=== PATIENT | male | born 1930 | race Caucasian/White ===

== ENCOUNTER 2017-12-23 12:17 | Inpatient (IN) | payer OTHER, BC ==
[~2017-12-23] VITALS: Ht 175.3 cm; Wt 95.4 kg
[2017-12-23] MEDS ORDERED: SODIUM CHLORIDE 0.9% 250ML 250 ML IV STA (12:51)
[2017-12-23] MEDS ORDERED: MECLIZINE HCL 25 MG TAB PO STA (12:51)
--- NOTE | 2017-12-23 13:15 | EMERGENCY ROOM VISIT NOTE ---
History Report prepared by Jacklyn: Jah Ahumada Under the Supervision of: Dr. Bryan Sosa M.D. First contact with patient: 12:32 Chief Complaint: FALL Stated Complaint: DIZZINESS AND FALL History of Present Illness The patient is a 87 year old male who presents to the Emergency Room with complaints of intermittent dizziness that occurred 2 days ago causing him to fall to the ground. Patient states he was lying in his recliner watching TV when he then stood up to go to the kitchen. He states as he was walking over he "lost control of anything". Patient describes the dizziness as "feeling like he is drunk". Patient adds he lacerated his right forearm trying to break the fall but denies hitting his head. Patient adds he has been having episodes at night recently where he wakes up feeling like he is "going to ". He states during these episodes he sits at the end of the bed for "10 minutes" with the inability to move anything. He states he is wide awake at this time. Patient states after the feeling resides he wobbles to the bathroom "like he is drunk". Patient states these episodes have happened "more than twice" but they do not happen every night. Patient states he feels like he is going to because he is "87 years old". Patient denies having nightmares. He states he drove to [place] this morning but wasn't feeling well because he was worried the "dizzy" feeling would hit him again while he was driving. Patient lives by himself. Patient takes a blood thinner and Aspirin. Past medical history includes Stage 4 kidney failure. Patient's last doctor visit was in May. Patient is present with his [id number] who is the patient's POA. Source of History: patient, family ([id number]) Onset: 2 days ago Position: head Timing: intermittent Modifying Factors (Relieving): other (None) Associated Symptoms: No LOC Review of Systems See HPI for pertinent positives and negatives. A total of ten systems were reviewed and were otherwise negative. Past Medical & Surgical Medical Problems: (1) Kidney failure Family History Omitted secondary to age. Social History Smoking Status: Never Smoker Housing Status: lives alone Current/Historical Medications Scheduled Aspirin (Aspirin EC Low Dose), 81 MG PO DAILY Cholecalciferol (Vitamin D3), 1,000 UNITS PO BID Felodipine (Plendil), 10 MG PO DAILY Finasteride (Proscar), 5 MG PO DAILY Oxybutynin Chloride (Oxybutynin Chloride Er), 1 TAB PO DAILY Pantoprazole (Protonix), 40 MG PO DAILY Tamsulosin Hcl (Flomax), 0.8 MG PO HS Scheduled PRN Hydrocodone/Acetaminophen 5MG/325MG ([place] 5MG/325MG), 1 TABLET PO Q8H PRN for Pain Allergies Coded Allergies: No Known Allergies (Unverified , 12/23/17) Physical Exam Vital Signs Date Time Temp Pulse Resp B/P (MAP) Pulse Ox O2 Delivery O2 Flow Rate FiO2 12/23/17 15:45 92 Room Air 12/23/17 14:31 121/60 12/23/17 14:22 54 25 94 12/23/17 14:01 133/69 12/23/17 13:52 67 25 12/23/17 13:47 64 18 12/23/17 13:31 122/56 12/23/17 13:17 65 23 92 12/23/17 13:10 129/54 12/23/17 13:08 67 12/23/17 12:23 36.6 89 17 113/57 96 Room Air Physical Exam GENERAL: Awake, alert, fatigued-appearing, in no distress HENT: Normocephalic, atraumatic. Oropharynx unremarkable. Mucous membranes are dry. EYES: Normal conjunctiva. Sclera non-icteric. NECK: Supple. No nuchal rigidity. FROM. No JVD. RESPIRATORY: Clear to auscultation. CARDIAC: Regular rate, normal rhythm. Extremities warm and well perfused. Pulses equal. ABDOMEN: Soft, non-distended. No tenderness to palpation. No rebound or guarding. No masses. RECTAL: Deferred. MUSCULOSKELETAL: Chest examination reveals no tenderness. The back is symmetrical on inspection without obvious abnormality. There is no CVA tenderness to palpation. No joint edema. LOWER EXTREMITIES: Calves are equal size bilaterally and non-tender. No edema. No discoloration. NEURO: Slight right eyelid ptosis. Positive Romberg with eyes closed. Slow unsteady gait. Normal cerebellar function with zfboro-[id number]-[id number], alternating palms , jtrt-[id number]. SKIN: No rash or jaundice noted. Medical Decision & Procedures ER Provider Diagnostic Interpretation: Radiology results as stated below per my review and radiologist interpretation: CHEST ONE VIEW PORTABLE CLINICAL HISTORY: ABDOMINAL PAIN/GI pain COMPARISON STUDY: No previous studies for comparison. FINDINGS: The bones soft tissues and hemidiaphragms are normal. The cardiomediastinal silhouette is normal. The lungs are clear. The pulmonary vasculature is normal. IMPRESSION: Negative chest. The above report was generated using voice recognition software. It may contain grammatical, syntax or spelling errors. Electronically signed by: Pipe Arguello M.D. 12/23/2017 1:36 PM HEAD WITHOUT CONTRAST (CT) CT DOSE: 690.05 mGycm HISTORY: Mental status change dizziness, vertigo, weakness TECHNIQUE: Multiaxial CT images of the head were performed without the use of intravenous contrast. A dose lowering technique was utilized adhering to the principles of ALARA. Comparison: None. Findings: The paranasal sinuses and mastoid air cells are clear. The calvarium and skull base are intact. The ventricles and sulci are within normal limits. There is no mass, hematoma, midline shift, or acute infarct. Impression: No acute intracranial abnormality. The above report was generated using voice recognition software. It may contain grammatical, syntax or spelling errors. Electronically signed by: Pipe Arguello M.D. 12/23/2017 2:45 PM Laboratory Results 12/23/17 13:10 Red Blood Count 4.01, Mean Corpuscular Volume 90.3, Mean Corpuscular Hemoglobin 29.9, Mean Corpuscular Hemoglobin Concent 33.1, Mean Platelet Volume 9.1, Neutrophils (%) (Auto) 60.0, Lymphocytes (%) (Auto) 27.2, Monocytes (%) (Auto) 6.8, Eosinophils (%) (Auto) 4.5, Basophils (%) (Auto) 1.1, Neutrophils # (Auto) 4.82, Lymphocytes # (Auto) 2.19, Monocytes # (Auto) 0.55, Eosinophils # (Auto) 0.36, Basophils # (Auto) 0.09 12/23/17 13:10 Test 12/23/17 13:10 12/23/17 14:15 White Blood Count 8.04 K/uL (4.8-10.8) Red Blood Count 4.01 M/uL (4.7-6.1) Hemoglobin 12.0 g/dL (14.0-18.0) Hematocrit 36.2 % (42-52) Mean Corpuscular Volume 90.3 fL (80-100) Mean Corpuscular Hemoglobin 29.9 pg (25-34) Mean Corpuscular Hemoglobin Concent 33.1 g/dl (32-36) Platelet Count 186 K/uL (130-400) Mean Platelet Volume 9.1 fL (7.4-10.4) Neutrophils (%) (Auto) 60.0 % Lymphocytes (%) (Auto) 27.2 % Monocytes (%) (Auto) 6.8 % Eosinophils (%) (Auto) 4.5 % Basophils (%) (Auto) 1.1 % Neutrophils # (Auto) 4.82 K/uL (1.4-6.5) Lymphocytes # (Auto) 2.19 K/uL (1.2-3.4) Monocytes # (Auto) 0.55 K/uL (0.11-0.59) Eosinophils # (Auto) 0.36 K/uL (0-0.5) Basophils # (Auto) 0.09 K/uL (0-0.2) RDW Standard Deviation 44.7 fL (36.4-46.3) RDW Coefficient of Variation 13.6 % (11.5-14.5) Immature Granulocyte % (Auto) 0.4 % Immature Granulocyte # (Auto) 0.03 K/uL (0.00-0.02) Erythrocyte Sedimentation Rate 26 mm/hr (0-14) Prothrombin Time 10.4 SECONDS (9.0-12.0) Prothromb Time International Ratio 1.0 (0.9-1.1) Anion Gap 7.0 mmol/L (3-11) Est Creatinine Clear Calc Drug Dose 17.4 ml/min Estimated GFR () 17.9 Estimated GFR (Non- 15.5 BUN/Creatinine Ratio 11.3 (10-20) Calcium Level 8.5 mg/dl (8.5-10.1) Phosphorus Level 2.5 mg/dl (2.5-4.9) Magnesium Level 2.2 mg/dl (1.8-2.4) Total Bilirubin 0.3 mg/dl (0.2-1) Direct Bilirubin < 0.1 mg/dl (0-0.2) Aspartate Amino Transf (AST/SGOT) 12 U/L (15-37) Alanine Aminotransferase (ALT/SGPT) 13 U/L (12-78) Alkaline Phosphatase 66 U/L (45-117) Troponin I < 0.015 ng/ml (0-0.045) Pro-B-Type Natriuretic Peptide 343 pg/ml (0-1800) Total Protein 7.6 gm/dl (6.4-8.2) Albumin 3.6 gm/dl (3.4-5.0) Lipase 142 U/L (73-393) Thyroid Stimulating Hormone (TSH) 1.490 uIu/ml (0.300-4.500) Free Thyroxine 0.77 ng/dl (0.80-1.60) Urine Crystals AMORPHOUS SEDIMENT (NONE Urine Yeast (Auto) (NONE PRSENT) Laboratory results reviewed by me Medications Administered Medications (Trade) Dose Ordered Sig/Josephine Route Start Time Stop Time Status Last Admin Dose Admin Sodium Chloride 250 ml @ 999 mls/hr Q16M STAT IV 12/23/17 12:51 12/23/17 13:06 DC 12/23/17 12:51 999 MLS/HR Meclizine HCl (Antivert Tab) 25 mg NOW STAT PO 12/23/17 12:51 12/23/17 12:54 DC 12/23/17 13:59 25 MG ECG Per My Interpretation Indication: weakness Rate (beats per minute): 65 Rhythm: normal sinus Findings: no acute ischemic change, other (Normal axis) ED Course 1233: The patient was evaluated in room B3B. A complete history and physical exam was performed. 1432: I reevaluated the patient and updated him on his findings. 1532: Upon reexamination, the patient will be further evaluated. I discussed the test results and treatment plan with him. The patient will be evaluated for further management. Medical Decision I reviewed the patient's past medical history, medications, and the nursing notes as described above. Differential diagnosis: Etiologies such as metabolic, infection, hypo/hyperglycemia, electrolyte abnormalities, cardiac sources, intracerebral event, toxicologic, neurologic, as well as others were entertained. The patient is an 87-year-old gentleman with a past medical history of CKD who presents to emergency department with several weeks of persistent dizziness, imbalance particularly after standing up with episode on Sunday where he fell after getting up out of his chair. Further, he reports episodes of waking up in the middle the night where he cannot move at all for 10 minutes and once he is able to move he feels very unsteady like he is "drunk". He denies chest pain or shortness of breath, fevers chills nausea vomiting. On exam the patient is fatigued appearing but no acute distress, afebrile stable vital signs. He has a slight right eyelid ptosis which he feels he has been familiar with before although his daughter in law at the bedside had never noticed it. Otherwise patient has positive Romberg when closing his eyes. His gait seems somewhat slow, guarded and unsteady. Otherwise, normal cerebellar function with [id number]-[id number], alternating palms, qjyf-yi-tlno. EKG unremarkable. Chest x-ray negative. WBC within normal limits. H/H is 12.0/36.2. Creatinine 3.36 with BUN of 38 without prior values for comparison but in the setting of the patient's report of stage IV CKD. Troponin negative. CT head negative. Given the patient's persistent balance difficulty admission for further evaluation for possible posterior stroke is reasonable. Case was discussed with Florina Zhang, who will evaluate the patient for admission. Medication Reconcilliation Current Medication List: was personally reviewed by me Blood Pressure Screening Patient's blood pressure: Normal blood pressure Blood pressure disposition: Did not require urgent referral Consults Time Called: 1512 Consulting Physician: KERA Zhang Hospitalist Returned Call: 1514 I discussed the patient with KERA Zhang will evaluate the patient for further treatment. Impression Primary Impression: Dizziness Additional Impressions: Unsteady gait Weakness generalized Scribe Attestation The scribe's documentation has been prepared under my direction and personally reviewed by me in its entirety. I confirm that the note above accurately reflects all work, treatment, procedures, and medical decision making performed by me. Departure Information Dispostion Being Evaluated By Hospitalist Referrals No Doctor, Assigned (PCP) Forms HOME CARE DOCUMENTATION FORM, IMPORTANT VISIT INFORMATION Patient Instructions My [facility] Problem Qualifiers
[2017-12-23 13:18] LABS: BASO % 1.1 %; BASO ABS # 0.09 K/uL (0-0.2); EOS % 4.5 %; EOS ABS # 0.36 K/uL (0-0.5); HEMATOCRIT 36.2 % (42-52); IG# 0.03 K/uL (0.00-0.02); LYMPH % 27.2 %; LYMPH ABS # 2.19 K/uL (1.2-3.4); MEAN CELL VOLUME 90.3 fL (80-100); MEAN CORPUSCULAR HEMOGLOBIN 29.9 pg (25-34); MEAN CORPUSCULAR HGB CONC 33.1 g/dl (32-36); MEAN PLATELET VOLUME 9.1 fL (7.4-10.4); MONO % 6.8 %; MONO ABS # 0.55 K/uL (0.11-0.59); NEUT ABS # 4.82 K/uL (1.4-6.5); PLATELET COUNT 186 K/uL (130-400); RED CELL DISTRIBUTION WIDTH CV 13.6 % (11.5-14.5); RED CELL DISTRIBUTION WIDTH SD 44.7 fL (36.4-46.3); WHITE BLOOD COUNT 8.04 K/uL (4.8-10.8)
[2017-12-23 13:38] LABS: ALBUMIN 3.6 gm/dl (3.4-5.0); ALKALINE PHOSPHATASE 66 U/L (45-117); ALT/SGPT 13 U/L (12-78); AST/SGOT 12 U/L (15-37); BLOOD UREA NITROGEN 38 mg/dl (7-18); CALCIUM 8.5 mg/dl (8.5-10.1); CARBON DIOXIDE 24 mmol/L (21-32); CREATININE 3.36 mg/dl (0.60-1.40); GLUCOSE 151 mg/dl (70-99); LIPASE 142 U/L (73-393); PHOSPHORUS 2.5 mg/dl (2.5-4.9); SODIUM 138 mmol/L (136-145); TOTAL PROTEIN 7.6 gm/dl (6.4-8.2)
--- NOTE | 2017-12-23 13:38 | DIAGNOSTIC IMAGING REPORT ---
CHEST ONE VIEW PORTABLE CLINICAL HISTORY: ABDOMINAL PAIN/GI pain COMPARISON STUDY: No previous studies for comparison. FINDINGS: The bones soft tissues and hemidiaphragms are normal. The cardiomediastinal silhouette is normal. The lungs are clear. The pulmonary vasculature is normal. IMPRESSION: Negative chest. The above report was generated using voice recognition software. It may contain grammatical, syntax or spelling errors. Electronically signed by: Pipe Arguello M.D. 12/23/2017 1:36 PM Dictated Date/Time: 12/23/2017 1:36 PM
[2017-12-23] MEDS ORDERED: FELO10TA2 PO (14:32)
[2017-12-23] MEDS ORDERED: CHOL1000 PO (14:32)
[2017-12-23] MEDS ORDERED: HYDR-5688 PO (14:32)
[2017-12-23] MEDS ORDERED: FINA5TAB PO (14:32)
[2017-12-23] MEDS ORDERED: TAMS0.4C38 PO (14:32)
[2017-12-23] MEDS ORDERED: PANT40TA PO (14:32)
[2017-12-23] MEDS ORDERED: DTR/5 PO (14:32)
--- NOTE | 2017-12-23 14:46 | DIAGNOSTIC IMAGING REPORT ---
HEAD WITHOUT CONTRAST (CT) CT DOSE: 690.05 mGycm HISTORY: Mental status change dizziness, vertigo, weakness TECHNIQUE: Multiaxial CT images of the head were performed without the use of intravenous contrast. A dose lowering technique was utilized adhering to the principles of ALARA. Comparison: None. Findings: The paranasal sinuses and mastoid air cells are clear. The calvarium and skull base are intact. The ventricles and sulci are within normal limits. There is no mass, hematoma, midline shift, or acute infarct. Impression: No acute intracranial abnormality. The above report was generated using voice recognition software. It may contain grammatical, syntax or spelling errors. Electronically signed by: Pipe Arguello M.D. 12/23/2017 2:45 PM Dictated Date/Time: 12/23/2017 2:44 PM
--- NOTE | 2017-12-23 15:26 | History and Physical ---
History & Physical Date & Time of Service: Dec 23, 2017 at 15:26 Chief Complaint: Dizziness And Fall Primary Care Physician: Roe Tong D.O. History of Present Illness Source: patient, family Patient is an 87-year-old male with past medical history of CKD stage IV, prostate cancer, hypertension, DM II, vitamin D deficiency, arthritis, Overactive Bladder, hearing loss and other problems presents with history of ambulatory dysfunction, falls, dizziness since few weeks duration. Patient states he has been having balance issues especially since last 2 weeks and admits to sustaining a fall 2 months ago and also again fell 2 days ago. He denies any history of LOC, head trauma but had lacerated his right forearm secondary to fall 2 days ago. He describes the dizziness "Like being drunk" but denies any alcohol use. Also states having episodes when he has been waking up in the middle of night and having hallucinations, gets disoriented and reports inability to move/ambulate for brief periods (10 minutes or less) and has been having balance issues with ambulation. "I do not know how to explain the events ". He also states that he quit taking his glyburide since May 2017 and has been having Urinary problems. He checks his blood sugar regularly which are usually well controlled as per patient. Denies any history of chest pain, SOB, pedal edema, cough, fever, chills, fall, head trauma, LOC, headache, weakness, numbness, tingling, double/blurry vision, vertigo, slurred speech, facial deformity, nausea, vomiting, memory issues, abdominal pain, diarrhea, dysuria. Past Medical/Surgical History Medical Problems: (1) Kidney failure Family History Father: CAD Mother: CAD Social History Smoking Status: Never Smoker Alcohol Use: none Drug Use: none Allergies Coded Allergies: No Known Allergies (Unverified , 12/23/17) Home Medications Scheduled Aspirin (Aspirin EC Low Dose), 81 MG PO DAILY Cholecalciferol (Vitamin D3), 1,000 UNITS PO BID Felodipine ([place]), 10 MG PO DAILY Finasteride (Proscar), 5 MG PO DAILY Oxybutynin Chloride (Oxybutynin Chloride Er), 1 TAB PO DAILY Pantoprazole (Protonix), 40 MG PO DAILY Tamsulosin Hcl (Flomax), 0.8 MG PO HS Scheduled PRN Hydrocodone/Acetaminophen 5MG/325MG ([place] 5MG/325MG), 1 TABLET PO Q8H PRN for Pain Review of Systems See HPI for pertinent positives & negatives. A total of 10 systems reviewed and were otherwise negative. Physical Exam Vital Signs Date Time Temp Pulse Resp B/P (MAP) Pulse Ox O2 Delivery O2 Flow Rate FiO2 12/23/17 13:47 64 18 12/23/17 13:31 122/56 12/23/17 13:17 65 23 92 12/23/17 13:10 129/54 12/23/17 13:08 67 12/23/17 12:23 36.6 89 17 113/57 96 Room Air General Appearance: WD/WN, no apparent distress Head: normocephalic, atraumatic Eyes: normal inspection, PERRL, EOMI, sclerae normal ENT: normal ENT inspection, + pertinent finding (Hearing loss) Neck: supple, trachea midline Respiratory/Chest: chest non-tender, lungs clear, normal breath sounds, no respiratory distress, no accessory muscle use Cardiovascular: regular rate, rhythm, no edema, no murmur Abdomen/GI: normal bowel sounds, non tender, soft Back: normal inspection Extremities/Musculoskelatal: normal inspection, no pedal edema, + pertinent finding (LUE + AV fistula, Right forearm laceration ) 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, no motor/sensory deficits, alert, normal mood/affect, oriented x 3, + pertinent finding (+Rhomberg's Sign) Skin: normal color, warm/dry Diagnostics Laboratory Results Results Past 24 Hours Test 12/23/17 13:10 12/23/17 14:15 Range/Units White Blood Count 8.04 4.8-10.8 K/uL Red Blood Count 4.01 4.7-6.1 M/uL Hemoglobin 12.0 14.0-18.0 g/dL Hematocrit 36.2 42-52 % Mean Corpuscular Volume 90.3 80-100 fL Mean Corpuscular Hemoglobin 29.9 25-34 pg Mean Corpuscular Hemoglobin Concent 33.1 32-36 g/dl Platelet Count 186 130-400 K/uL Mean Platelet Volume 9.1 7.4-10.4 fL Neutrophils (%) (Auto) 60.0 % Lymphocytes (%) (Auto) 27.2 % Monocytes (%) (Auto) 6.8 % Eosinophils (%) (Auto) 4.5 % Basophils (%) (Auto) 1.1 % Neutrophils # (Auto) 4.82 1.4-6.5 K/uL Lymphocytes # (Auto) 2.19 1.2-3.4 K/uL Monocytes # (Auto) 0.55 0.11-0.59 K/uL Eosinophils # (Auto) 0.36 0-0.5 K/uL Basophils # (Auto) 0.09 0-0.2 K/uL RDW Standard Deviation 44.7 36.4-46.3 fL RDW Coefficient of Variation 13.6 11.5-14.5 % Immature Granulocyte % (Auto) 0.4 % Immature Granulocyte # (Auto) 0.03 0.00-0.02 K/uL Sodium Level 138 136-145 mmol/L Potassium Level 4.0 3.5-5.1 mmol/L Chloride Level 107 98-107 mmol/L Carbon Dioxide Level 24 21-32 mmol/L Anion Gap 7.0 3-11 mmol/L Blood Urea Nitrogen 38 7-18 mg/dl Creatinine 3.36 0.60-1.40 mg/dl Est Creatinine Clear Calc Drug Dose 17.4 ml/min Estimated GFR () 17.9 Estimated GFR (Non- 15.5 BUN/Creatinine Ratio 11.3 10-20 Random Glucose 151 70-99 mg/dl Calcium Level 8.5 8.5-10.1 mg/dl Phosphorus Level 2.5 2.5-4.9 mg/dl Magnesium Level 2.2 1.8-2.4 mg/dl Total Bilirubin 0.3 0.2-1 mg/dl Direct Bilirubin < 0.1 0-0.2 mg/dl Aspartate Amino Transf (AST/SGOT) 12 15-37 U/L Alanine Aminotransferase (ALT/SGPT) 13 12-78 U/L Alkaline Phosphatase 66 45-117 U/L Troponin I < 0.015 0-0.045 ng/ml Pro-B-Type Natriuretic Peptide 343 0-1800 pg/ml Total Protein 7.6 6.4-8.2 gm/dl Albumin 3.6 3.4-5.0 gm/dl Lipase 142 73-393 U/L Urine Color YELLOW Urine Appearance CLOUDY CLEAR Urine pH 5.0 4.5-7.5 Urine Specific [place] 1.017 1.000-1.030 Urine Protein TRACE NEG Urine Glucose (UA) TRACE NEG Urine Ketones NEG NEG Urine Occult Blood NEG NEG Urine Nitrite NEG NEG Urine Bilirubin NEG NEG Urine Urobilinogen NEG NEG Urine Leukocyte Esterase LARGE NEG Urine WBC (Auto) >30 0-5 /hpf Urine RBC (Auto) 0-4 0-4 /hpf Urine Hyaline Casts (Auto) 1-5 0-5 /lpf Urine Epithelial Cells (Auto) >30 0-5 /lpf Urine Bacteria (Auto) NEG NEG Urine Crystals AMORPHOUS SEDIMENT NONE PRSENT Urine Yeast (Auto) NONE PRSENT Microbiology Results 12/23/17 Urine Culture, Received Pending Diagnostic Radiology CT Head: No acute intracranial abnormality. CAR: Negative chest. EKG EKG: NSR Impression Assessment and Plan Dizziness DD:Medications, Orthostatic hypotension CT head: No acute intracranial findings Monitor in Telemetry for arrhythmia Check Orthostatics Hold Felodipine, Oxybutynin May have to decrease Tamsulosin dose Gentle IV fluids Check MRI brain Carotid Ultrasound, EEG ECG shows:NSR Fall precautions Ambulatory Dysfunction Falls ? 2/2 diabetic Neuropathy DD: Vestibular Problems Thyroid function test: near normal Check Vitamin B12, Hg A1C PT/OT Abnormal UA: Possible contamination Empirically start Rocephin Repeat UA Follow Urine culture CKD stage IV Unknown baseline Cr levels Follows with [facility] in [place] Never been on dialysis per patient but had fistula created monitor renal function Avoid Nephrotoxic agents as able H/O Prostate cancer Stable continue Finasteride, Tamsulosin [facility] Hypertension Has been labile per patient Stable Hold Felodipine DM II Currently not on meds Check Hg A1C start ISS monitor BGs Vitamin D deficiency Continue Vit D supplements Osteoarthritis on Chronic Pain meds Overactive Bladder Oxybutynin not helping with symptoms Hold Oxybutynin for now DVT Px: Heparin SQ Code Status: Full Code Disposition: Monitor in Tele Resuscitation Status VTE Prophylaxis Will order VTE Prophylaxis: Yes
[2017-12-23 15:45] VITALS: O2SAT 92; BMI 31.2
[2017-12-23] MEDS ORDERED: ONDANSETRON INJ 2 MG/ML 2 ML VIAL IV PRN (16:45)
[2017-12-23] MEDS ORDERED: ACETAMINOPHEN 325 MG TAB PO PRN (16:45)
[2017-12-23] MEDS ORDERED: SODIUM CHLORIDE 0.9% 1000ML 1,000 ML IV ONE (16:45)
[2017-12-23] MEDS ORDERED: ASPI-320 PO (17:00)
[2017-12-23] MEDS ORDERED: OXYB5TAB PO (17:00)
[2017-12-23] MEDS ORDERED: IV FLUIDS COMPLETED PRN (17:00)
[2017-12-23] MEDS ORDERED: GLUCOSE 10 TABS/TUBE PO PRN (17:15)
[2017-12-23] MEDS ORDERED: DEXTROSE 50% 50 ML SYR IV PRN (17:15)
[2017-12-23] MEDS ORDERED: GLUCAGON FOR INJ 1 MG VIAL SQ PRN (17:15)
[2017-12-23] MEDS ORDERED: GLUCOSE 40% GEL 15 GM TUBE PO PRN (17:15)
[2017-12-23] MEDS ORDERED: HYDROCODONE/ACETAMIN 5/325MG TAB PO PRN (17:15)
[2017-12-23] MEDS ORDERED: CARBOHYDRATES FOR HYPOGLYCEMIA PO PRN (17:15)
[2017-12-23] MEDS ORDERED: DOCUSATE SODIUM 100 MG CAP PO PRN (17:45)
[2017-12-23] MEDS ORDERED: POLYETHYLENE (MIRALAX) 17 GM PACK PO PRN (17:45)
[2017-12-23] MEDS: CEFTRIAXONE SOD INJ 1 GM in DEXTROSE 5% ADD-VANTAGE 50ML 50 ML IV SCH (20:24)
[2017-12-23] MEDS: TAMSULOSIN HCL 0.4 MG CAP PO SCH (21:26)
[2017-12-23] MEDS: CHOLECALCIFEROL 1000 INTER.UNIT TAB PO SCH (21:27)
[2017-12-23] MEDS: INSULIN ASPART 100 UNITS/ML 3 ML PEN SC SCH (21:34)
[2017-12-23] MEDS: HEPARIN SOD 5000 UNIT/0.5 ML CARP SQ SCH (21:35)
[2017-12-23 23:13] VITALS: BP 150/68; PULSE 55; TEMP 36.7; O2SAT 96
[2017-12-24] VITALS (7 sets, daily range): BP systolic 123–160; BP diastolic 43–75; PULSE 51–66; TEMP 36.4–36.8; O2SAT 94–97; Ht 175.3 cm; Wt 95.4 kg
[2017-12-24 05:52] LABS: HEMOGLOBIN A1C 6.4 % (4.5-5.6)
[2017-12-24 05:58] LABS: HEMATOCRIT 34.4 % (42-52); HEMOGLOBIN 11.4 g/dL (14.0-18.0); MEAN CELL VOLUME 90.3 fL (80-100); MEAN CORPUSCULAR HEMOGLOBIN 29.9 pg (25-34); MEAN CORPUSCULAR HGB CONC 33.1 g/dl (32-36); PLATELET COUNT 178 K/uL (130-400); RED CELL DISTRIBUTION WIDTH CV 13.6 % (11.5-14.5); RED CELL DISTRIBUTION WIDTH SD 44.7 fL (36.4-46.3); WHITE BLOOD COUNT 7.83 K/uL (4.8-10.8)
[2017-12-24 06:24] LABS: CALCIUM 8.4 mg/dl (8.5-10.1); CREATININE 3.38 mg/dl (0.60-1.40)
[2017-12-24] MEDS: INSULIN ASPART 100 UNITS/ML 3 ML PEN SC SCH ×4 (07:00→21:00)
--- NOTE | 2017-12-24 07:03 | DIAGNOSTIC IMAGING REPORT ---
CAROTID ARTERY ULTRASOUND CLINICAL HISTORY: Dizziness. COMPARISON STUDY: None. TECHNIQUE: Real-time, grayscale, and color Doppler sonography of the carotid and vertebral arteries was performed. Images were viewed in the transverse and longitudinal planes. FINDINGS: There is mild atherosclerotic plaque. Velocity measurements are listed below. COMMON CAROTID PEAK SYSTOLIC VELOCITY (CM/S): RIGHT 52 LEFT 64 ICA PEAK SYSTOLIC VELOCITY (CM/S): RIGHT 70 LEFT 61 Systolic ratios between the internal to common carotid arteries are normal. Antegrade flow is seen in the vertebral arteries. The external carotid arteries are patent. Blood pressure could not be obtained in this patient. IMPRESSION: No evidence for a hemodynamically significant stenosis. Electronically signed by: Juan Ramon Salmeron M.D. 12/24/2017 7:02 AM Dictated Date/Time: 12/24/2017 7:00 AM
--- NOTE | 2017-12-24 07:18 | DIAGNOSTIC IMAGING REPORT ---
MRI OF THE BRAIN WITHOUT IV CONTRAST CLINICAL HISTORY: Dizziness. Stroke like symptoms. COMPARISON STUDY: CT of the brain dated 12/23/2017. TECHNIQUE: MRI of the brain was performed utilizing various T1 and T2-weighted sequences in the axial, sagittal, and coronal planes. IV contrast was not administered for this examination. FINDINGS: Brain parenchyma: There are age-related involutional changes noting mild patchy subcortical and periventricular microangiopathic disease. There is no hemorrhage or mass effect. There is no restricted diffusion to suggest acute ischemia. Shaikh-white matter differentiation is preserved. No extra-axial fluid collection is seen. The cerebellar tonsils are normal in configuration. Ventricles, sulci, and cisterns: Prominent secondary to involutional change. Pituitary and sella: Unremarkable. Intracranial vasculature: There is loss of the left vertebral artery flow void in the upper neck. The remaining flow voids are preserved. Orbits: The bony orbits are grossly intact. Orbital contents are normal in appearance noting bilateral ocular lens implants. Sinuses and mastoids: Clear. Calvarium: Unremarkable. Cervical cord: Partially visualized cervical spinal cord is normal in morphology and signal intensity. IMPRESSION: 1. There is no hemorrhage, mass effect, or evidence of acute ischemia. 2. There is loss of the left vertebral artery flow void in the upper neck. This may be related to slow flow or vessel occlusion. Correlation with a CT angiogram of the neck is recommended for further assessment. Electronically signed by: Jt Dodge M.D. 12/24/2017 7:17 AM Dictated Date/Time: 12/24/2017 7:13 AM
--- NOTE | 2017-12-24 09:47 | Progress Note ---
Internal Med Progress Note Date of Service: Dec 24, 2017. Provider Documentation: SUBJECTIVE: Seen and examined at bedside Doing well today Slept well overnight Denies dizziness, nausea, chest pain, SOB No complaints Discussed regarding MRI findings with patient OBJECTIVE: Vital Signs-as noted below General Appearance: WD/WN, no apparent distress Head: normocephalic, atraumatic Eyes: normal inspection, PERRL, EOMI, sclerae normal ENT: normal ENT inspection, + Hearing loss Neck: supple, trachea midline Respiratory/Chest: chest non-tender, lungs clear, normal breath sounds, no respiratory distress, no accessory muscle use Cardiovascular: regular rate, rhythm, no edema, no murmur Abdomen/GI: normal bowel sounds, non tender, soft Back: normal inspection Extremities/Musculoskelatal: normal inspection, no pedal edema, +LUE + AV fistula, Right forearm laceration Neurologic/Psych: Grossly no focal deficits, +Rhomberg's Sign Skin: normal color, warm/dry Lab data as noted below. ASSESSMENT & PLAN: Dizziness DD:Vascular, Medications CT head: No acute intracranial findings MRI Brain:no hemorrhage, mass effect, or evidence of acute ischemia. loss of the left vertebral artery flow void in the upper neck. This may be related to slow flow or vessel occlusion. Carotid USD: No evidence for a hemodynamically significant stenosis. Monitor in Telemetry for arrhythmia Orthostatics normal Hold Felodipine, Oxybutynin for now May have to decrease Tamsulosin dose EEG pending ECG shows:NSR Fall precautions Consulted Neurology for Input Ambulatory Dysfunction Falls ? 2/2 diabetic Neuropathy DD: Vestibular Problems Thyroid function test: near normal Vitamin B12 normal Hg A1C:6.4 PT/OT Abnormal UA: Possible contamination Empirically Rocephin Urine culture pending DC Abx if Urine culture negative CKD stage IV Unknown baseline Cr levels Follows with [facility] in [place] Never been on dialysis per patient but had fistula created monitor renal function Avoid Nephrotoxic agents as able H/O Prostate cancer Stable continue Finasteride, Tamsulosin [facility] Hy[facility]ension Has been labile per patient Stable Resume Felodipine as able DM II Currently not on meds Hg A1C:6.4 continue ISS monitor BGs Vitamin D deficiency Continue Vit D supplements Osteoarthritis on Chronic Pain meds Overactive Bladder Oxybutynin not helping with symptoms Hold Oxybutynin for now DVT Px: Heparin SQ Code Status: Full Code Disposition: Monitor in Tele Vital Signs: Date Time Temp Pulse Resp B/P (MAP) Pulse Ox O2 Delivery O2 Flow Rate FiO2 12/24/17 07:15 36.6 57 18 152/62 (92) 96 Room Air 12/24/17 03:05 36.8 57 18 160/69 (99) 97 Room Air 12/23/17 23:13 36.7 55 18 150/68 (95) 96 Room Air 12/23/17 20:00 Room Air 12/23/17 17:32 59 16 158/69 100 12/23/17 15:45 92 Room Air 12/23/17 14:31 121/60 12/23/17 14:22 54 25 94 12/23/17 14:01 133/69 12/23/17 13:52 67 25 12/23/17 13:47 64 18 12/23/17 13:31 122/56 12/23/17 13:17 65 23 92 12/23/17 13:10 129/54 12/23/17 13:08 67 12/23/17 12:23 36.6 89 17 113/57 96 Room Air Lab Results: Results Past 24 Hours Test 12/23/17 13:10 12/23/17 14:15 12/23/17 17:04 12/23/17 18:30 Range/Units White Blood Count 8.04 4.8-10.8 K/uL Red Blood Count 4.01 4.7-6.1 M/uL Hemoglobin 12.0 14.0-18.0 g/dL Hematocrit 36.2 42-52 % Mean Corpuscular Volume 90.3 80-100 fL Mean Corpuscular Hemoglobin 29.9 25-34 pg Mean Corpuscular Hemoglobin Concent 33.1 32-36 g/dl Platelet Count 186 130-400 K/uL Mean Platelet Volume 9.1 7.4-10.4 fL Neutrophils (%) (Auto) 60.0 % Lymphocytes (%) (Auto) 27.2 % Monocytes (%) (Auto) 6.8 % Eosinophils (%) (Auto) 4.5 % Basophils (%) (Auto) 1.1 % Neutrophils # (Auto) 4.82 1.4-6.5 K/uL Lymphocytes # (Auto) 2.19 1.2-3.4 K/uL Monocytes # (Auto) 0.55 0.11-0.59 K/uL Eosinophils # (Auto) 0.36 0-0.5 K/uL Basophils # (Auto) 0.09 0-0.2 K/uL RDW Standard Deviation 44.7 36.4-46.3 fL RDW Coefficient of Variation 13.6 11.5-14.5 % Immature Granulocyte % (Auto) 0.4 % Immature Granulocyte # (Auto) 0.03 0.00-0.02 K/uL Erythrocyte Sedimentation Rate 26 0-14 mm/hr Prothrombin Time 10.4 9.0-12.0 SECONDS Prothromb Time International Ratio 1.0 0.9-1.1 Sodium Level 138 136-145 mmol/L Potassium Level 4.0 3.5-5.1 mmol/L Chloride Level 107 98-107 mmol/L Carbon Dioxide Level 24 21-32 mmol/L Anion Gap 7.0 3-11 mmol/L Blood Urea Nitrogen 38 7-18 mg/dl Creatinine 3.36 0.60-1.40 mg/dl Est Creatinine Clear Calc Drug Dose 17.4 ml/min Estimated GFR () 17.9 Estimated GFR (Non- 15.5 BUN/Creatinine Ratio 11.3 10-20 Random Glucose 151 70-99 mg/dl Estimated Average Glucose 137 mg/dl Hemoglobin A1c 6.4 4.5-5.6 % Calcium Level 8.5 8.5-10.1 mg/dl Phosphorus Level 2.5 2.5-4.9 mg/dl Magnesium Level 2.2 1.8-2.4 mg/dl Total Bilirubin 0.3 0.2-1 mg/dl Direct Bilirubin < 0.1 0-0.2 mg/dl Aspartate Amino Transf (AST/SGOT) 12 15-37 U/L Alanine Aminotransferase (ALT/SGPT) 13 12-78 U/L Alkaline Phosphatase 66 45-117 U/L Troponin I < 0.015 0-0.045 ng/ml Pro-B-Type Natriuretic Peptide 343 0-1800 pg/ml Total Protein 7.6 6.4-8.2 gm/dl Albumin 3.6 3.4-5.0 gm/dl Lipase 142 73-393 U/L Thyroid Stimulating Hormone (TSH) 1.490 0.300-4.500 uIu/ml Free Thyroxine 0.77 0.80-1.60 ng/dl Rapid Plasma Reagin NONREACTIVE NONREACT Urine Color YELLOW YELLOW Urine Appearance CLOUDY CLEAR CLEAR Urine pH 5.0 6.5 4.5-7.5 Urine Specific [place] 1.017 1.009 1.000-1.030 Urine Protein TRACE NEG NEG Urine Glucose (UA) TRACE NEG NEG Urine Ketones NEG NEG NEG Urine Occult Blood NEG TRACE NEG Urine Nitrite NEG NEG NEG Urine Bilirubin NEG NEG NEG Urine Urobilinogen NEG NEG NEG Urine Leukocyte Esterase LARGE MODERATE NEG Urine WBC (Auto) >30 >30 0-5 /hpf Urine RBC (Auto) 0-4 0-4 0-4 /hpf Urine Hyaline Casts (Auto) 1-5 1-5 0-5 /lpf Urine Epithelial Cells (Auto) >30 0-5 0-5 /lpf Urine Bacteria (Auto) NEG NEG NEG Urine Crystals AMORPHOUS SEDIMENT NONE PRSENT Urine Yeast (Auto) NONE PRSENT Vitamin B12 Level 337 211-911 pg/mL Folate 8.75 >5.38 ng/mL Test 12/23/17 18:43 12/23/17 20:55 12/24/17 05:18 12/24/17 07:13 Range/Units Bedside Glucose 115 166 121 70-99 mg/dl White Blood Count 7.83 4.8-10.8 K/uL Red Blood Count 3.81 4.7-6.1 M/uL Hemoglobin 11.4 14.0-18.0 g/dL Hematocrit 34.4 42-52 % Mean Corpuscular Volume 90.3 80-100 fL Mean Corpuscular Hemoglobin 29.9 25-34 pg Mean Corpuscular Hemoglobin Concent 33.1 32-36 g/dl RDW Standard Deviation 44.7 36.4-46.3 fL RDW Coefficient of Variation 13.6 11.5-14.5 % Platelet Count 178 130-400 K/uL Mean Platelet Volume 9.0 7.4-10.4 fL Sodium Level 142 136-145 mmol/L Potassium Level 4.0 3.5-5.1 mmol/L Chloride Level 109 98-107 mmol/L Carbon Dioxide Level 24 21-32 mmol/L Anion Gap 9.0 3-11 mmol/L Blood Urea Nitrogen 35 7-18 mg/dl Creatinine 3.38 0.60-1.40 mg/dl Est Creatinine Clear Calc Drug Dose 17.1 ml/min Estimated GFR () 17.8 Estimated GFR (Non- 15.3 BUN/Creatinine Ratio 10.4 10-20 Random Glucose 106 70-99 mg/dl Calcium Level 8.4 8.5-10.1 mg/dl Microbiology Results 12/23/17 Urine Culture, Received Pending
[2017-12-24] MEDS: FINASTERIDE 5 MG TAB PO SCH (10:20)
[2017-12-24] MEDS: PANTOprazole SOD 40 MG TAB PO SCH (10:20)
[2017-12-24] MEDS: ASPIRIN 81 MG ECTAB PO SCH (10:21)
[2017-12-24] MEDS: CHOLECALCIFEROL 1000 INTER.UNIT TAB PO SCH ×2 (10:21→20:46)
[2017-12-24] MEDS: HEPARIN SOD 5000 UNIT/0.5 ML CARP SQ SCH ×2 (10:22→20:53)
--- NOTE | 2017-12-24 14:55 | Neurology Consultation ---
Neurology Consultation Date of Consultation: Dec 24, 2017. Attending Physician: Marko Fuentes MD Primary Care Physician: Roe Tong D.O. Reason for Consultation: dizziness History of Present Illness Source: patient, family Humble is an 87 year old male with PMH CKD stage IV, prostate cancer, hypertension, DM II, vitamin D deficiency, arthritis, Overactive Bladder, hearing loss falls, dizziness since few weeks duration. He has been having balance issues especially since last 2 weeks and admits to sustaining a fall 2 months ago and also again fell 2 days ago. He has an open area from the fall 2 days ago on his right arm. He describes the dizziness "Like being drunk" but denies any alcohol use. He has woke up in the middle of night with difficulty getting out of bed or ambulating for brief periods (10 minutes or less) he sits or lies down and it passes. "I do not know how to explain the events". He also states that he quit taking his glyburide since May 2017 and has been having Urinary problems. He checks his blood sugar regularly and he thinks it is well controlled. He has a port in his left arm because at one point they thought he was going to need dialysis. denies CP, SOB, abdominal pain, one sided weakness, numbness tingling, N, V, bowel or bladder symptoms, slurred speech, swallowing issues Past Medical/Surgical History Medical Problems: (1) Dizziness Status: Acute (2) Unsteady gait Status: Acute (3) Weakness generalized Status: Acute Social History Alcohol Use: none Drug Use: none Housing Status: lives alone Allergies Coded Allergies: No Known Allergies (Unverified , 12/23/17) Current Inpatient Medications Current Inpatient Medications Medications (Trade) Dose Ordered Sig/Josephine Route Start Time Stop Time Status Last Admin Dose Admin Heparin Sodium (Porcine) (Heparin Sq 5000 Unit/0.5ml) 5,000 unit Q12 SQ 12/23/17 21:00 01/22/18 20:59 12/24/17 10:22 5,000 UNIT Acetaminophen (Tylenol Tab) 650 mg Q4H PRN PO 12/23/17 16:45 01/22/18 16:44 Ondansetron HCl (Zofran Inj) 4 mg Q6H PRN IV 12/23/17 16:45 01/22/18 16:44 Miscellaneous (Iv Fluids Completed) 1 ea PRN PRN N/A 12/23/17 17:00 12/23/18 16:59 Aspirin (Ecotrin Tab) 81 mg DAILY PO 12/24/17 09:00 01/23/18 08:59 12/24/17 10:21 81 MG Cholecalciferol (Vitamin D Tab) 1,000 inter.unit BID PO 12/23/17 21:00 01/22/18 20:59 12/24/17 10:21 1,000 INTER.UNIT Finasteride (Proscar Tab) 5 mg DAILY PO 12/24/17 09:00 01/23/18 08:59 12/24/17 10:20 5 MG Acetaminophen/ Hydrocodone Bitart ([place] 5/325 Tab) 1 tab Q8H PRN PO 12/23/17 17:15 01/06/18 17:14 Pantoprazole Sodium (Protonix Tab) 40 mg DAILY PO 12/24/17 09:00 01/23/18 08:59 12/24/17 10:20 40 MG Tamsulosin HCl (Flomax Cap) 0.8 mg HS PO 12/23/17 21:00 01/22/18 20:59 12/23/17 21:26 0.8 MG Ceftriaxone Sodium 1 gm/ Dextrose 50 ml @ 100 mls/hr Q24H IV 12/23/17 19:00 12/28/17 18:59 12/23/17 20:24 100 MLS/HR Insulin Aspart (novoLOG ASPART) SLIDING SCALE If C... ACHS SC 12/23/17 21:00 01/22/18 20:59 12/24/17 12:58 2 UNITS Glucose (Glucose 40% Gel) 15-30 GRAMS 15 GRAMS... UD PRN PO 12/23/17 17:15 01/22/18 17:14 Glucose (Glucose Chew Tab) 4-8 Tablets 4 Tabl... UD PRN PO 12/23/17 17:15 01/22/18 17:14 Dextrose (Dextrose 50% 50ML Syringe) 25-50ML 25ML FOR ... UD PRN IV 12/23/17 17:15 01/22/18 17:14 Glucagon (Glucagon Inj) 1 mg UD PRN SQ 12/23/17 17:15 01/22/18 17:14 Carbohydrates (Carbohydrates For Hypoglycemia) 15-30 GRAMS 15 grams if BSG 54-69... UD PRN PO 12/23/17 17:15 01/22/18 17:14 Docusate Sodium (coLACE CAP) 100 mg BID PRN PO 12/23/17 17:45 01/22/18 17:44 Polyethylene (Miralax Powder Packet) 17 gm DAILY PRN PO 12/23/17 17:45 01/22/18 17:44 Physical Exam Vital Signs (Past 24 Hrs): Date Time Temp Pulse Resp B/P (MAP) Pulse Ox O2 Delivery O2 Flow Rate FiO2 12/24/17 12:00 Room Air 12/24/17 11:30 36.6 66 20 146/60 (88) 96 Room Air 12/24/17 08:00 Room Air 12/24/17 07:15 36.6 57 18 152/62 (92) 96 Room Air 12/24/17 03:05 36.8 57 18 160/69 (99) 97 Room Air 12/23/17 23:13 36.7 55 18 150/68 (95) 96 Room Air 12/23/17 20:00 Room Air 12/23/17 17:32 59 16 158/69 100 12/23/17 15:45 92 Room Air Physical Exam: Constitutional:appearance nourished, healthy and normal, very [place] Ears, Nose, Mouth and Throat: mucous membranes moist, no injection and skin normal, eyes normal Cardiovascular: normal S-1 and S-2 and regular rate and rhythm Respiratory: course breath sounds Musculoskeletal: no peripheral edema and decreased distal pulses Skin: no stigmata of neurocutaneous disease noted and normal and intact Eyes: extraocular muscles intact (EOMI) and pupils equal, round and reactive to light (PERRL) NEUROLOGIC EXAMINATION: Mental status: Alert and interactive Oriented to full date and location Oriented to person Speech fluent with no evidence of aphasia Cranial Nerves smile eye brow raise symmetric Reflexes: Deep tendon reflexes were symmetrical decreased LE Sensory: vibration sensation decreased to knee, GT proprioception absent LLE Coordination: finger to nose no bi pass, no resting tremor, essential tremor Gait/Stance: Posture normal. Motor: Negative for pronator drift of out stretched arms with eyes closed. Strength: biceps triceps hand foam rubber molder 5/5 bilaterally, hip flex patellar/ plantar flex ext 5/ 5 Laboratory Results Past 24 Hours: 12/24/17 05:18 12/24/17 05:18 Test 12/23/17 17:04 12/23/17 18:30 12/24/17 05:18 12/24/17 11:28 Vitamin B12 Level 337 pg/mL (211-911) Folate 8.75 ng/mL (>5.38) Urine Color YELLOW Urine Appearance CLEAR (CLEAR) Urine pH 6.5 (4.5-7.5) Urine Specific [place] 1.009 (1.000-1.030) Urine Protein NEG (NEG) Urine Glucose (UA) NEG (NEG) Urine Ketones NEG (NEG) Urine Occult Blood TRACE (NEG) Urine Nitrite NEG (NEG) Urine Bilirubin NEG (NEG) Urine Urobilinogen NEG (NEG) Urine Leukocyte Esterase MODERATE (NEG) Urine WBC (Auto) >30 /hpf (0-5) Urine RBC (Auto) 0-4 /hpf (0-4) Urine Hyaline Casts (Auto) 1-5 /lpf (0-5) Urine Epithelial Cells (Auto) 0-5 /lpf (0-5) Urine Bacteria (Auto) NEG (NEG) Red Blood Count 3.81 M/uL (4.7-6.1) Mean Corpuscular Volume 90.3 fL (80-100) Mean Corpuscular Hemoglobin 29.9 pg (25-34) Mean Corpuscular Hemoglobin Concent 33.1 g/dl (32-36) RDW Standard Deviation 44.7 fL (36.4-46.3) RDW Coefficient of Variation 13.6 % (11.5-14.5) Mean Platelet Volume 9.0 fL (7.4-10.4) Anion Gap 9.0 mmol/L (3-11) Est Creatinine Clear Calc Drug Dose 17.1 ml/min Estimated GFR () 17.8 Estimated GFR (Non- 15.3 BUN/Creatinine Ratio 10.4 (10-20) Calcium Level 8.4 mg/dl (8.5-10.1) Bedside Glucose 137 mg/dl (70-99) Imaging CT head- No acute intracranial abnormality. carotid doppler- No evidence for a hemodynamically significant stenosis. MRI brain - There is no hemorrhage, mass effect, or evidence of acute ischemia. There is loss of the left vertebral artery flow void in the upper neck. This may be related to slow flow or vessel occlusion. Correlation with a CT angiogram of the neck is recommended for further assessment. Impression 87 year old male with extensive PMH evaluation for dizziness Plan 1. CT with no acute findings 2. MRI brain loss of left vert flow void in upper neck likely no contributory 3. CTA would better define occlusion however with renal function not able to order and would not change plan will order MRA head and neck without contrast to try to better define vascular circulation 4. PT for Ileana maneuver to see if symptoms can be reproduced 5. fall precautions 6. severe peripheral neuropathy is likely contributing to falls 7. does not describe as spinning of room but he feels drunk - may be vertigo 8. aspirin 81 mg continued 9. norco on home medications- would limit use due to falls 10. orthostatic ordered- pending results I have seen and discussed above patient with Dr Raquel Hernandez, neurology Pt seen and examined. pt experiences a new sense of off-balance primarily when he gets up, lasting 10 min, not associated with lightheadedness or vertigo or other neurologic sx. MRI brain, no acute abnl, left vert appears occluded on MRI. Exam notable for only signs of peripheral neuropathy. P MRA of head and neck noncontrast given renal insufficiency, vascular work-up including echo, tele, checking orthostatics. PT to eval for peripheral labrynthopathy, possible Ileana. In interim add Plavix to asa. KONSTANTIN Hernandez MD
[2017-12-24] MEDS: CEFTRIAXONE SOD INJ 1 GM in DEXTROSE 5% ADD-VANTAGE 50ML 50 ML IV SCH (19:00)
[2017-12-24] MEDS: CLOPIDOGREL BISULFATE 75 MG TAB PO SCH (20:08)
--- NOTE | 2017-12-24 20:17 | DIAGNOSTIC IMAGING REPORT ---
MRA HEAD WITHOUT CONTRAST CLINICAL HISTORY: 87 years-old Male presenting with episodes of dizziness and balance, recent episode 2 days ago accompanied by fall, patient associated symptoms with diabetes medicine begun in May, history of prostate cancer. TECHNIQUE: MR angiography of the head was performed without the use of intravenous contrast using 3-D [id number] technique. 3-D volumetric and/or maximum intensity projection (MIP) images were subsequently reconstructed for review. IV contrast: None. COMPARISON: Noncontrast MR brain performed earlier today. FINDINGS: Anterior circulation: Intracranial portions of the internal carotid arteries patent to the level of the termini. Anterior and middle cerebral arteries patent. Anterior communicating artery patent. Posterior circulation: Codominant vertebral arteries. Normal flow related enhancement in the intradural portion of the right vertebral artery. The left vertebral artery demonstrates diminished flow related enhancement from the level of C1-occiput to the confluence with the right vertebral artery. This likely relates to slow flow or severe stenosis. The right posterior inferior cerebellar artery (PICA) demonstrates normal flow related enhancement. Left PICA not visualized. Basilar artery patent. Anterior inferior cerebellar arteries poorly visualized. Superior cerebellar and posterior cerebral arteries patent. Posterior communicating arteries patent. IMPRESSION: 1. 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 This could be confirmed with CTA head if it is clinically indicated. Electronically signed by: Ray Roca M.D. 12/24/2017 8:16 PM Dictated Date/Time: 12/24/2017 8:10 PM
--- NOTE | 2017-12-24 20:25 | DIAGNOSTIC IMAGING REPORT ---
MRA NECK WITHOUT CONTRAST CLINICAL HISTORY: 87 years-old Male presenting with episodes of dizziness and balance, recent episode 2 days ago accompanied by fall, patient associates symptoms with diabetes medication begun in May, history of prostate cancer. TECHNIQUE: MR angiography of the neck was performed before and after the administration of intravenous contrast. 3-D volumetric and/or maximum intensity projection (MIP) images were subsequently reconstructed for review. IV contrast: None. Stenosis measurements were based on NASCET-like criteria. COMPARISON: Carotid Doppler ultrasound performed earlier the same day. FINDINGS: Localizer images: Unremarkable. Aortic arch: Origins of the major branch vessels of aortic arch poorly characterized. Innominate artery: Grossly patent. Right common carotid artery: Grossly patent. Right internal and external carotid arteries: Right carotid bifurcation grossly patent. Right internal and external carotid arteries widely patent. Left common carotid artery: Grossly patent on the axial [id number] imaging. Left internal and external carotid arteries: Left carotid bifurcation grossly patent on axial [id number] imaging. Left internal carotid artery also grossly patent. Left subclavian artery: Grossly patent. Vertebral arteries: The left vertebral artery is not demonstrated. Complete absence of flow related enhancement in the left vertebral artery. The origin of the right vertebral artery is poorly characterize. The remainder the course of the right vertebral artery is patent. Other: Limited intracranial evaluation within normal limits. Focus of T1 hyperintensity in the region of the left tonsil, possibly inspissated debris. IMPRESSION: 1. Absence of flow related enhancement in the left vertebral artery raises concern for occlusion, severe stenosis, or extremely slow flow. The severity better characterized with CTA. Electronically signed by: Ray Roca M.D. 12/24/2017 8:24 PM Dictated Date/Time: 12/24/2017 8:18 PM
[2017-12-24] MEDS: TAMSULOSIN HCL 0.4 MG CAP PO SCH (20:46)
[2017-12-25] VITALS (10 sets, daily range): BP systolic 122–180; BP diastolic 56–80; PULSE 58–65; TEMP 36.6–37; O2SAT 94–97
[2017-12-25 06:22] LABS: HEMATOCRIT 34.9 % (42-52); HEMOGLOBIN 11.5 g/dL (14.0-18.0); MEAN CELL VOLUME 90.2 fL (80-100); MEAN CORPUSCULAR HEMOGLOBIN 29.7 pg (25-34); MEAN PLATELET VOLUME 9.3 fL (7.4-10.4); PLATELET COUNT 189 K/uL (130-400); RED CELL DISTRIBUTION WIDTH CV 13.5 % (11.5-14.5); RED CELL DISTRIBUTION WIDTH SD 44.3 fL (36.4-46.3); WHITE BLOOD COUNT 8.69 K/uL (4.8-10.8)
[2017-12-25 06:59] LABS: CALCIUM 8.6 mg/dl (8.5-10.1); CREATININE 3.61 mg/dl (0.60-1.40); POTASSIUM 4.1 mmol/L (3.5-5.1)
[2017-12-25] MEDS: INSULIN ASPART 100 UNITS/ML 3 ML PEN SC SCH ×4 (07:00→20:33)
[2017-12-25] MEDS: CHOLECALCIFEROL 1000 INTER.UNIT TAB PO SCH ×2 (08:03→19:24)
[2017-12-25] MEDS: FINASTERIDE 5 MG TAB PO SCH (08:03)
[2017-12-25] MEDS: CLOPIDOGREL BISULFATE 75 MG TAB PO SCH (08:03)
[2017-12-25] MEDS: PANTOprazole SOD 40 MG TAB PO SCH (08:03)
[2017-12-25] MEDS: ASPIRIN 81 MG ECTAB PO SCH (08:03)
[2017-12-25] MEDS: HEPARIN SOD 5000 UNIT/0.5 ML CARP SQ SCH ×2 (08:11→20:00)
--- NOTE | 2017-12-25 13:19 | Progress Note ---
Internal Med Progress Note Date of Service: Dec 25, 2017. Provider Documentation: SUBJECTIVE: Seen and examined at bedside Doing well today Denies dizziness, chest pain, SOB No complaints Discussed with Son in detail Urine Culture is pending Planned for Ileana's with help of PT today OBJECTIVE: Vital Signs-as noted below General Appearance: WD/WN, no apparent distress Head: normocephalic, atraumatic Eyes: normal inspection, PERRL, EOMI, sclerae normal ENT: normal ENT inspection, + Hearing loss Neck: supple, trachea midline Respiratory/Chest: chest non-tender, lungs clear, normal breath sounds, no respiratory distress, no accessory muscle use Cardiovascular: regular rate, rhythm, no edema, no murmur Abdomen/GI: normal bowel sounds, non tender, soft Back: normal inspection Extremities/Musculoskelatal: normal inspection, no pedal edema, +LUE + AV fistula, Right forearm laceration Neurologic/Psych: Grossly no focal deficits, +Romberg's Sign Skin: normal color, warm/dry Lab data as noted below. ASSESSMENT & PLAN: Dizziness/Balance issues: Likely 2/2 Vertebral artery stenosis Vs Infection DD:2/[address] head: No acute intracranial findings MRI Brain:no hemorrhage, mass effect, or evidence of acute ischemia. loss of the left vertebral artery flow void in the upper neck. This may be related to slow flow or vessel occlusion. Carotid USD: No evidence for a hemodynamically significant stenosis. Neck MRA: Absence of flow related enhancement in the left vertebral artery raises concern for occlusion, severe stenosis, or extremely slow flow. Head MRA: Findings suggest slow flow versus severe stenosis of the intradural portion of the left vertebral artery. Orthostatics normal Hold Oxybutynin for now Planned for Ileana's to eval for peripheral Labrynthopathy EEG pending ECG shows:NSR Fall precautions Appreciate Neurology Input Continue Aspirin. Added Plavix Ambulatory Dysfunction Falls ? 2/2 diabetic Neuropathy DD: Vestibular Problems Thyroid function test: near normal Vitamin B12 normal Hg A1C:6.4 PT/OT: Recommends home Possible UTI Empirically on Rocephin Urine culture: Staph wait for final cultures CKD stage IV Cr levels (3.5 to 3.8 at baseline as per patient's son) Follows with [facility] in [place] Never been on dialysis per patient but had fistula created monitor renal function Avoid Nephrotoxic agents as able Cr at baseline H/O Prostate cancer Stable continue Finasteride, Tamsulosin [facility] Hypertension labile Resume Felodipine DM II Currently not on meds Hg A1C:6.4 continue ISS monitor BGs Vitamin D deficiency Continue Vit D supplements Osteoarthritis on Chronic Pain meds Overactive Bladder Oxybutynin not helping with symptoms Hold Oxybutynin for now DVT Px: Heparin SQ Code Status: Full Code Disposition: Plan to discharge home with Home health tomorrow Vital Signs: Date Time Temp Pulse Resp B/P (MAP) Pulse Ox O2 Delivery O2 Flow Rate FiO2 12/25/17 12:10 36.7 59 16 132/67 (88) 97 Room Air 12/25/17 08:00 96 Room Air 12/25/17 06:54 36.7 64 18 122/80 (94) 96 Room Air 12/25/17 03:09 36.7 65 19 161/75 (103) 95 Room Air 12/25/17 00:00 Room Air 12/24/17 23:23 36.7 51 17 124/43 (70) 94 Room Air 12/24/17 19:34 36.8 57 17 123/53 (76) 95 Room Air 12/24/17 16:00 95 Room Air 12/24/17 15:03 36.4 61 16 148/75 (99) 95 Room Air Lab Results: Results Past 24 Hours Test 12/24/17 16:20 12/24/17 21:02 12/25/17 05:35 12/25/17 07:33 Range/Units Bedside Glucose 119 122 108 70-99 mg/dl White Blood Count 8.69 4.8-10.8 K/uL Red Blood Count 3.87 4.7-6.1 M/uL Hemoglobin 11.5 14.0-18.0 g/dL Hematocrit 34.9 42-52 % Mean Corpuscular Volume 90.2 80-100 fL Mean Corpuscular Hemoglobin 29.7 25-34 pg Mean Corpuscular Hemoglobin Concent 33.0 32-36 g/dl RDW Standard Deviation 44.3 36.4-46.3 fL RDW Coefficient of Variation 13.5 11.5-14.5 % Platelet Count 189 130-400 K/uL Mean Platelet Volume 9.3 7.4-10.4 fL Sodium Level 140 136-145 mmol/L Potassium Level 4.1 3.5-5.1 mmol/L Chloride Level 107 98-107 mmol/L Carbon Dioxide Level 26 21-32 mmol/L Anion Gap 8.0 3-11 mmol/L Blood Urea Nitrogen 37 7-18 mg/dl Creatinine 3.61 0.60-1.40 mg/dl Est Creatinine Clear Calc Drug Dose 16.1 ml/min Estimated GFR () 16.4 Estimated GFR (Non- 14.2 BUN/Creatinine Ratio 10.1 10-20 Random Glucose 109 70-99 mg/dl Calcium Level 8.6 8.5-10.1 mg/dl Test 12/25/17 11:27 Range/Units Bedside Glucose 127 70-99 mg/dl
--- NOTE | 2017-12-25 14:25 | Neurology Progress Notes ---
Neurology Progress Note Date of Service Dec 25, 2017. Theresa Kate is an 87 year old male with PMH CKD stage IV, prostate cancer, hypertension, DM II, vitamin D deficiency, arthritis, Overactive Bladder, hearing loss falls, dizziness since few weeks duration. He has been having balance issues especially since last 2 weeks and admits to sustaining a fall 2 months ago and also again fell 2 days ago. He has an open area from the fall 2 days ago on his right arm. He describes the dizziness "Like being drunk" but denies any alcohol use. He has woke up in the middle of night with difficulty getting out of bed or ambulating for brief periods (10 minutes or less) he sits or lies down and it passes. "I do not know how to explain the events". He also states that he quit taking his glyburide since May 2017 and has been having Urinary problems. He checks his blood sugar regularly and he thinks it is well controlled. He has a port in his left arm because at one point they thought he was going to need dialysis. Today he states he is doing good no complaints. He has been up to the bathroom with no issues. denies CP, SOB, abdominal pain, one sided weakness, numbness tingling, N, V, bowel or bladder symptoms, slurred speech, swallowing issues Objective Date Time Temp Pulse Resp B/P (MAP) Pulse Ox O2 Delivery O2 Flow Rate FiO2 12/25/17 12:10 36.7 59 16 132/67 (88) 97 Room Air 12/25/17 08:00 96 Room Air 12/25/17 06:54 36.7 64 18 122/80 (94) 96 Room Air 12/25/17 03:09 36.7 65 19 161/75 (103) 95 Room Air 12/25/17 00:00 Room Air 12/24/17 23:23 36.7 51 17 124/43 (70) 94 Room Air 12/24/17 19:34 36.8 57 17 123/53 (76) 95 Room Air 12/24/17 16:00 95 Room Air 12/24/17 15:03 36.4 61 16 148/75 (99) 95 Room Air Last 24 Hours Test 12/24/17 16:20 12/24/17 21:02 12/25/17 05:35 12/25/17 07:33 Bedside Glucose 119 mg/dl 122 mg/dl 108 mg/dl White Blood Count 8.69 K/uL Red Blood Count 3.87 M/uL Hemoglobin 11.5 g/dL Hematocrit 34.9 % Mean Corpuscular Volume 90.2 fL Mean Corpuscular Hemoglobin 29.7 pg Mean Corpuscular Hemoglobin Concent 33.0 g/dl RDW Standard Deviation 44.3 fL RDW Coefficient of Variation 13.5 % Platelet Count 189 K/uL Mean Platelet Volume 9.3 fL Sodium Level 140 mmol/L Potassium Level 4.1 mmol/L Chloride Level 107 mmol/L Carbon Dioxide Level 26 mmol/L Anion Gap 8.0 mmol/L Blood Urea Nitrogen 37 mg/dl Creatinine 3.61 mg/dl Est Creatinine Clear Calc Drug Dose 16.1 ml/min Estimated GFR () 16.4 Estimated GFR (Non- 14.2 BUN/Creatinine Ratio 10.1 Random Glucose 109 mg/dl Calcium Level 8.6 mg/dl Test 12/25/17 11:27 Bedside Glucose 127 mg/dl Imaging: MRA head. 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 This could be confirmed with CTA head if it is clinically indicated. MRA neck- . Absence of flow related enhancement in the left vertebral artery raises concern for occlusion, severe stenosis, or extremely slow flow. The severity better characterized with CTA. Exam: Gen: alert NAD PERRL/EOMI lungs CTA CV RRR strength biceps tricep hand floor layer 5/5 bilaterally, hip flex plantar flex ext 5/5 bilateral finger to nose with no bi pass no pronator drift neuro: vibration sensation decreased to knee, GT proprioception absent LLE Current Inpatient Medications Medications (Trade) Dose Ordered Sig/Josephine Route Start Time Stop Time Status Last Admin Dose Admin Heparin Sodium (Porcine) (Heparin Sq 5000 Unit/0.5ml) 5,000 unit Q12 SQ 12/23/17 21:00 01/22/18 20:59 12/25/17 08:11 5,000 UNIT Acetaminophen (Tylenol Tab) 650 mg Q4H PRN PO 12/23/17 16:45 01/22/18 16:44 Ondansetron HCl (Zofran Inj) 4 mg Q6H PRN IV 12/23/17 16:45 01/22/18 16:44 Miscellaneous (Iv Fluids Completed) 1 ea PRN PRN N/A 12/23/17 17:00 12/23/18 16:59 Aspirin (Ecotrin Tab) 81 mg DAILY PO 12/24/17 09:00 01/23/18 08:59 12/25/17 08:03 81 MG Cholecalciferol (Vitamin D Tab) 1,000 inter.unit BID PO 12/23/17 21:00 01/22/18 20:59 12/25/17 08:03 1,000 INTER.UNIT Finasteride (Proscar Tab) 5 mg DAILY PO 12/24/17 09:00 01/23/18 08:59 12/25/17 08:03 5 MG Acetaminophen/ Hydrocodone Bitart ([place] 5/325 Tab) 1 tab Q8H PRN PO 12/23/17 17:15 01/06/18 17:14 Pantoprazole Sodium (Protonix Tab) 40 mg DAILY PO 12/24/17 09:00 01/23/18 08:59 12/25/17 08:03 40 MG Tamsulosin HCl (Flomax Cap) 0.8 mg HS PO 12/23/17 21:00 01/22/18 20:59 12/24/17 20:46 0.8 MG Ceftriaxone Sodium 1 gm/ Dextrose 50 ml @ 100 mls/hr Q24H IV 12/23/17 19:00 12/28/17 18:59 12/24/17 19:00 100 MLS/HR Insulin Aspart (novoLOG ASPART) SLIDING SCALE If C... ACHS SC 12/23/17 21:00 01/22/18 20:59 12/25/17 13:18 2 UNITS Glucose (Glucose 40% Gel) 15-30 GRAMS 15 GRAMS... UD PRN PO 12/23/17 17:15 01/22/18 17:14 Glucose (Glucose Chew Tab) 4-8 Tablets 4 Tabl... UD PRN PO 12/23/17 17:15 01/22/18 17:14 Dextrose (Dextrose 50% 50ML Syringe) 25-50ML 25ML FOR ... UD PRN IV 12/23/17 17:15 01/22/18 17:14 Glucagon (Glucagon Inj) 1 mg UD PRN SQ 12/23/17 17:15 01/22/18 17:14 Carbohydrates (Carbohydrates For Hypoglycemia) 15-30 GRAMS 15 grams if BSG 54-69... UD PRN PO 12/23/17 17:15 01/22/18 17:14 Docusate Sodium (coLACE CAP) 100 mg BID PRN PO 12/23/17 17:45 01/22/18 17:44 Polyethylene (Miralax Powder Packet) 17 gm DAILY PRN PO 12/23/17 17:45 01/22/18 17:44 Clopidogrel Bisulfate (plAVix TAB) 75 mg QAM PO 12/24/17 19:15 01/23/18 19:14 12/25/17 08:03 75 MG Felodipine (Plendil Tabcr) 10 mg DAILY PO 12/26/17 09:00 01/25/18 08:59 Impression 87 year old male with extensive PMH evaluation for dizziness Plan 1. CT with no acute findings 2. MRI brain loss of left vert flow void in upper neck likely no contributory 3. CTA would better define occlusion however with renal function not able to order and would not change plan will order MRA head and neck without contrast to try to better define vascular circulation 4. PT for Ileana maneuver to see if symptoms can be reproduced 5. fall precautions 6. severe peripheral neuropathy is likely contributing to falls 7. does not describe as spinning of room but he feels drunk - may be vertigo 8. aspirin 81 mg continued Plavix 75 mg added 9. norco on home medications- would limit use due to falls 10. orthostatic ordered- no reading recorded 11. needs TTE for completeness 12. Zio as outpatient will defer to primary team follow up with neurology 2-3 weeks Raquel Hernandez MD or Raquel Wilder PAC schedule I have seen and discussed above patient with Dr Raquel Hernandez, neurology Pt seen and examined. No further sx. Exam normal including gait for age. Possible post circ TIA, rec dual antiplt tx for 3 months then Plavix alone. Continue vascular work-up and check orthostatics. Will sign off. KONSTANTIN Hernandez MD
--- NOTE | 2017-12-25 16:06 | ELECTROENCEPHALOGRAPH REPORT ---
FOR: Dr. Fuentes. CLINICAL DIAGNOSIS: Dizziness and weakness. EEG DIAGNOSIS: Marginally abnormal EEG with slight increased generalized slow-wave activity during wakefulness. DESCRIPTION OF TRACING: This EEG was done as a bedside recording without a simultaneous video analysis of patient movement and behavior. Photic stimulation was performed. Hyperventilation was not. Episodic drowsiness is seen. During wakefulness, the background alpha rhythm is marginally in the normal range running between 8 and 9 Hz most of the time and was up to 30-40 microvolts of maximum amplitude. Polymorphic mid to lower frequency modest voltage theta activity intermixed with occasional waveforms in the delta range is seen in a symmetrical fashion in the central regions. Beta activity is seen bifrontally. Photic stimulation provokes modest driving response without photomyogenic or photoparoxysmal components. Hyperventilation was not performed. Episodic drowsiness is seen, but is never sustained and no abnormal activations occur. No time during the waking and drowsing tracing was there evidence for clearcut potentially epileptogenic activity in the form of polyspike or spike wave bursts, focal sharp waves or focal spikes. INTERPRETATION: This EEG reveals evidence for mild to minimal generalized abnormalities consisting of poorly sustained background alpha rhythm and slightly excessive slow wave activity. At age 87, this may well be a normal pattern and there are certainly no lateralizing features and no evidence for potentially epileptogenic activity.
[2017-12-25] MEDS ORDERED: FELODIPINE 5 MG TABCR PO ONE (17:30)
[2017-12-25] MEDS: CEFTRIAXONE SOD INJ 1 GM in DEXTROSE 5% ADD-VANTAGE 50ML 50 ML IV SCH (19:21)
[2017-12-25] MEDS: TAMSULOSIN HCL 0.4 MG CAP PO SCH (19:25)
[2017-12-26] VITALS: O2SAT 96
[2017-12-26 06:29] LABS: HEMATOCRIT 36.2 % (42-52); HEMOGLOBIN 11.9 g/dL (14.0-18.0); MEAN CELL VOLUME 90.5 fL (80-100); MEAN CORPUSCULAR HEMOGLOBIN 29.8 pg (25-34); MEAN CORPUSCULAR HGB CONC 32.9 g/dl (32-36); MEAN PLATELET VOLUME 9.6 fL (7.4-10.4); PLATELET COUNT 210 K/uL (130-400); RED CELL DISTRIBUTION WIDTH CV 13.6 % (11.5-14.5); RED CELL DISTRIBUTION WIDTH SD 44.6 fL (36.4-46.3)
[2017-12-26 07:05] LABS: CALCIUM 8.5 mg/dl (8.5-10.1); CREATININE 3.79 mg/dl (0.60-1.40); POTASSIUM 4.1 mmol/L (3.5-5.1)
[2017-12-26 07:29] VITALS: BP 131/61; PULSE 57; TEMP 36.4; O2SAT 93
[2017-12-26] MEDS: ASPIRIN 81 MG ECTAB PO SCH (07:59)
[2017-12-26] MEDS: CHOLECALCIFEROL 1000 INTER.UNIT TAB PO SCH (07:59)
[2017-12-26] MEDS: CLOPIDOGREL BISULFATE 75 MG TAB PO SCH (07:59)
[2017-12-26 08:00] VITALS: O2SAT 93
[2017-12-26] MEDS ORDERED: FELODIPINE 5 MG TABCR PO SCH (08:00)
[2017-12-26] MEDS: FINASTERIDE 5 MG TAB PO SCH (08:00)
[2017-12-26] MEDS: PANTOprazole SOD 40 MG TAB PO SCH (08:00)
[2017-12-26] MEDS: HEPARIN SOD 5000 UNIT/0.5 ML CARP SQ SCH (08:01)
[2017-12-26] MEDS: INSULIN ASPART 100 UNITS/ML 3 ML PEN SC SCH ×2 (08:45→11:00)
--- NOTE | 2017-12-26 09:16 | ECHOCARDIOGRAM REPORT ---
*NOTICE TO RECEIVING CONSTITUTION PARTY AGENCY This information is strictly Confidential and protected under [place] law. [place] law prohibits you from making any further disclosure of this information unless further disclosure is expressly permitted by the written consent of the person to whom it pertains or is authorized by law. A general authorization for the release of medical or other information is not sufficient for this purpose. Hospital accepts no responsibility if the information is made available to any other person, INCLUDING THE PATIENT. Interpretation Summary * Name: PONCHO ROBLEDO Study Date: 12/26/2017 07:31 AM BP: 131/61 mmHg * Patient Location: [facility] HR: 63 * : 1930 (M/d/yyyy) Gender: Male Height: 69 in * Age: 87 yrs Ethnicity: [place] Weight: 210 lb * Ordering Physician: Raquel Wilder * Referring Physician: Self, Referred * Performed By: Nancy Tadeo RCS * * Reason For Study: POSSIBLE TIA / DIZZINESS * BSA: 2.1 m2 * -- Conclusions -- * The left ventricle is normal in size. * There is moderate concentric left ventricular hypertrophy. * The left ventricular wall motion is normal. * Left ventricular systolic function is normal. * Ejection Fraction = 55-60%. * Grade I diastolic dysfunction, (abnormal relaxation pattern). * Aortic valve sclerosis moderate, without significant aortic valvular stenosis. * The interatrial septum is intact with no evidence for an atrial septal defect. * Injection of contrast documented no interatrial shunt. Procedure Details * A complete two-dimensional transthoracic echocardiogram was performed (2D, M-mode, Doppler and color flow Doppler). * A saline contrast injection was performed to assess for cardiac shunting. * The injection was performed through an intravenous line in the right arm. * The attending nurse who injected the saline contrast was SHAYY Reinoso RN. * A total of 10 cc of agitated saline was given. Left Ventricle * The left ventricle is normal in size. * There is moderate concentric left ventricular hypertrophy. * Left ventricular systolic function is normal. * Ejection Fraction = 55-60%. * The left ventricular wall motion is normal. Right Ventricle * The right ventricle is normal in size and function. Atria * The left atrium is mildly dilated. * Right atrial size is normal. * The interatrial septum is intact with no evidence for an atrial septal defect. * Injection of contrast documented no interatrial shunt. Mitral Valve * The mitral valve is grossly normal. * There is no mitral valve stenosis. * There is trace mitral regurgitation. Tricuspid Valve * The tricuspid valve anatomy is normal. * There is no tricuspid stenosis. * There is trace tricuspid regurgitation. Aortic Valve * The aortic valve is trileaflet. * Aortic valve sclerosis moderate, without significant aortic valvular stenosis. * There is no significant aortic regurgitation. Pulmonic Valve * The pulmonary valve is not well seen, but the Doppler examination is normal without significant regurgitation or stenosis. Great Vessels * The aortic root and proximal ascending aorta are normal sized. Pericardium/Pleural * There is no pericardial effusion. Great Vessels * Normal inferior vena cava diameter and respiratory variation suggests normal central venous pressure. Left Ventricular Diastolic Function * Grade I diastolic dysfunction, (abnormal relaxation pattern). MMode 2D Measurements and Calculations IVSd 1.8 cm IVSs 2.1 cm LVIDd 5.0 cm LVIDs 3.8 cm LVPWd 1.3 cm LVPWs 2.1 cm IVS/LVPW 1.4 FS 22.8 % EDV(Teich) 117.3 ml ESV(Teich) 63.8 ml EF(Teich) 45.6 % EDV(cubed) 123.7 ml ESV(cubed) 56.9 ml EF(cubed) 54.0 % % IVS thick 20.2 % % LVPW thick 63.6 % LV mass(C)d 331.8 grams LV mass(C)dI 157.3 grams/m\S\2 LV mass(C)s 393.9 grams LV mass(C)sI 186.8 grams/m\S\2 SV(Teich) 53.5 ml SI(Teich) 25.4 ml/m\S\2 SV(cubed) 66.8 ml SI(cubed) 31.7 ml/m\S\2 Ao root diam 3.1 cm Ao root area 7.3 cm\S\2 ACS 1.6 cm LA dimension 4.9 cm LA/Ao 1.6 LVOT diam 2.0 cm LVOT area 3.1 cm\S\2 LVAd ap4 37.8 cm\S\2 LVLd ap4 8.8 cm EDV(MOD-sp4) 134.0 ml EDV(sp4-el) 137.9 ml LVAs ap4 23.4 cm\S\2 LVLs ap4 7.7 cm ESV(MOD-sp4) 58.9 ml ESV(sp4-el) 60.5 ml EF(MOD-sp4) 56.0 % EF(sp4-el) 56.1 % LVAd ap2 34.6 cm\S\2 LVLd ap2 8.2 cm EDV(MOD-sp2) 118.0 ml EDV(sp2-el) 124.5 ml LVAs ap2 17.6 cm\S\2 LVLs ap2 5.8 cm ESV(MOD-sp2) 43.4 ml ESV(sp2-el) 45.0 ml EF(MOD-sp2) 63.2 % EF(sp2-el) 63.9 % LVLd %diff -7.69 % EDV(MOD-bp) 126.3 ml LVLs %diff -31.60 % ESV(MOD-bp) 55.4 ml EF(MOD-bp) 56.1 % SV(MOD-sp4) 75.1 ml SI(MOD-sp4) 35.6 ml/m\S\2 SV(MOD-sp2) 74.6 ml SI(MOD-sp2) 35.4 ml/m\S\2 SV(MOD-bp) 70.8 ml SI(MOD-bp) 33.6 ml/m\S\2 SV(sp4-el) 77.4 ml SI(sp4-el) 36.7 ml/m\S\2 SV(sp2-el) 79.5 ml SI(sp2-el) 37.7 ml/m\S\2 Doppler Measurements and Calculations MV E max manuel 64.2 cm/sec MV A max manuel 79.8 cm/sec MV E/A 0.80 MV P1/2t max manuel 67.3 cm/sec MV P1/2t 112.5 msec MVA(P1/2t) 2.0 cm\S\2 MV dec slope 175.3 cm/sec\S\2 MV dec time 0.38 sec Ao V2 max 104.0 cm/sec Ao max PG 4.3 mmHg Ao max PG (full) 0.80 mmHg KARRIE(V,A) 2.8 cm\S\2 KARRIE(V,D) 2.8 cm\S\2 LV V1 max PG 3.5 mmHg LV V1 max 93.9 cm/sec PA V2 max 117.3 cm/sec PA max PG 5.5 mmHg
[2017-12-26] MEDS ORDERED: PLV75 PO (11:35)
[2017-12-26] MEDS ORDERED: ASPI-320 PO (11:35)
[2017-12-26 11:38] VITALS: BP 131/61; PULSE 57; TEMP 36.4; O2SAT 93
[2017-12-26] MEDS ORDERED: MECL1TAB42 PO (11:51)
--- NOTE | 2017-12-26 11:53 | Discharge Instructions ---
Discharge Instructions Date of Service Dec 26, 2017. Admission Reason for Admission: Dizziness, Weakness Generalized Discharge Discharge Diagnosis / Problem: DIZZY SPELL /VERTEBRAL ARTERY STENOSIS /CKD STAGE 4 Discharge Goals Goal(s): Decrease discomfort, Improve function, Increase independence, Improve disease control, Diagnostic testing, Therapeutic intervention Activity Recommendations Activity Limitations: resume your previous activity . Instructions / Follow-Up Instructions / Follow-Up FOLLOW UP WITH PHYSICIAN AT [facility] IN 3-4 MONTHS ( GOAL LDL < 70 ) TAKE BOTH ASPIRIN 81 MG DAILY AND PLAVIX 75 MG DAILY FOR 3 MONTHS ( PLEASE TAKE THEM AFTER MEALS TO PREVENT GASTRITIS /BLEEDING IN STOMACH ) THEN TAKE ONLY PLAVIX 75 MG DAILY PLEASE STOP TAKING ASPIRIN /PLAVIX AND NOTIFY YOUR PHYSICIAN WITH ANY EVENT OF DARK STOOL OR BLOOD IN STOOL NEUROLOGY FOLLOW UP: 01/15/2018 @11:20 AM Raquel Wilder PA-C Neurology [facility] NEPHROLOGY FOLLOW UP :01/04/2018 @ 10:[address] Yayo Renteria MD Nephrology, [facility] ADDRESS: [address] [place], [place] [id number] Risk Factors for Stroke: You can reduce your chances of stroke by working with your medical provider to adopt a healthy lifestyle. Some specific ways to lower your chance of stroke are: * If you are a smoker, now is the time to stop smoking cigarettes * If you are diabetic, improve the control of your blood sugars * Avoid excessive amounts of alcohol * Control high blood pressure * Lose weight if you are overweight * Be sure to lead an active lifestyle * Eat a healthy diet low in salt, cholesterol and fat You should know about other risk factors for stroke that you are unable to control. These include: * Age 55 years or older * Male gender * Certain racial groups: , or / * Family History of Stroke, Mini stroke or Heart Attack * Sickle Cell Disease Follow Up: It is important for you to keep your follow up appointments with your medical provider. Current Hospital Diet Patient's current hospital diet: Diabetes Type 2 Diet Discharge Diet Recommended Diet: AHA Diet (Heart Healthy), Diabetes Type 2 Diet Pending Studies Studies pending at discharge: no Laboratory Results Hemoglobin A1c Test 12/23/17 13:10 Range/Units Estimated Average Glucose 137 mg/dl Hemoglobin A1c 6.4 H 4.5-5.6 % Medical Emergencies . Who to Call and When: Medical Emergencies: Call 911 immediately if you experience any of the following warning signs and symptoms of Stroke: * Sudden numbness or weakness of the face, arm or leg, especially on one side of the body * Sudden confusion, trouble speaking or understanding * Sudden trouble seeing in one or both eyes * Sudden trouble walking, dizziness, loss of balance or coordination * Sudden severe headache with no cause Do not delay calling 911 if you experience any warning signs or symptoms of a stroke. Delay in seeking medical attention may affect what treatments can be given to you. . Non-Emergent Contact Non-Emergency issues call your: Primary Care Provider . . "Provider Documentation" section prepared by Gaby Page. . Stroke Core Measures Reason no t-PA for Stroke: Treatment not indicated Reason no antithrom by day 2: Treatment provided - N/A Reason no antithrom at D/C: Treatment provided - N/A Reason no statin at D/C: Treatment provided - N/A Reason no anticoag w/a fib: Treatment not indicated
[2017-12-26] MEDS ORDERED: KEFLEX PO (11:59)
[2017-12-26] MEDS ORDERED: LPT10 PO (12:05)
[2017-12-26] MEDS ORDERED: CEPHALEXIN MONOHYDRATE 250 MG CAP PO ONE (12:30)
--- NOTE | 2017-12-26 12:33 | Discharge Summary ---
Discharge Summary Date of Service Dec 26, 2017. Discharge Summary Admission Date: Dec 24, 2017 at 07:43 Discharge Date: Dec 26, 2017 Discharge Disposition: Home with services Principal Diagnosis: DIZZY SPELL /VERTEBRAL ARTERY STENOSIS /CKD STAGE 4 Procedures: Echocardiogram: 12/26/2017: Left ventricle is normal in size There is moderate concentric left ventricular hypertrophy. The left ventricular wall motion is normal Left ventricular systolic function is normal EF 5560% Grade 1 diastolic dysfunction Aortic valve sclerosis moderate, without significant aortic valvular stenosis. The entire atrial septum is intact with no evidence for an atrial septal defect. Injection of contrast documented shows no inter-atrial shunt. EE12/25/2017 -The EKG reveals evidence for mild to moderate minimal generalized abnormalities consisting of poorly sustained background alpha rhythm and slight excessive slow wave activity. At age 87, this may well be a normal pattern and there are certainly no lateralizing features and no evidence of potentially epileptogenic activity CT head without contrast: 12/23/2017 Impression: No acute intracranial abnormality Carotid ultrasound: 12/23/2017 Impression: No evidence for hemodynamically significant stenosis. MRI OF BRAIN WITHOUT IV CONTRAST 1. There is no hemorrhage, mass-effect or evidence of acute ischemia 2. There is loss of the left vertebral artery flow void in the upper neck. This may be related to slow flow or vessel occlusion. Correlation with a CT angiogram of neck is recommended for further assessment. MRA NECK WITHOUT CONTRAST Impression: Absence of flow related enhancement in the left vertebral artery raises concern for occlusion, severe stenosis or extremely slow flow. The severity better characterized with CTA Consultations: [facility] Medication Reconciliation New Medications: Atorvastatin (Lipitor) 10 Mg Tab 1 TAB PO DAILY for 90 Days, #90 TABS 3 Refills Meclizine Hcl (Meclizine Hcl) 25 Mg Tab 1 TAB PO TID PRN for Dizziness or Vertigo for 30 Days, #90 TAB [Keflex] () 250 MG PO BID for 4 Days, #8 CAP Clopidogrel Bisulfate (Clopidogrel) 75 Mg Tab 75 MG PO QAM for 90 Days, #90 TAB 3 Refills take after meals /with food stop taking Aspirin after 3 months cont to take plavix 1 tablet daily Changed Medications: Aspirin (Aspirin EC Low Dose) 81 Mg Ectab 81 MG PO DAILY for 90 Days, #90 TABS (Medication details modified) take with food stop taking aspirin after 3 months Continued Medications: Cholecalciferol (Vitamin D3) 1,000 Unit Tab 1000 UNITS PO BID Felodipine (Plendil) 10 Mg Tabcr 10 MG PO DAILY Finasteride (Proscar) 5 Mg Tab 5 MG PO DAILY Hydrocodone/Acetaminophen 5MG/325MG ([place] 5MG/325MG) Tab 1 TABLET PO Q8H PRN for Pain PRN PAIN Pantoprazole (Protonix) 40 Mg Tab 40 MG PO DAILY Tamsulosin Hcl (Flomax) 0.4 Mg Cap 0.8 MG PO HS Discontinued Medications: Oxybutynin Chloride (Oxybutynin Chloride Er) 5 Mg Tab 1 TAB PO DAILY for 30 Days, #30 TAB 5 Refills Referrals At Discharge Follow up Referrals: Neurologist Referral - 01/15/18 with Raquel Wilder PA-C Admission Information HPI (per Admitting provider): Patient is an 87-year-old male with past medical history of CKD stage IV, prostate cancer, hypertension, DM II, vitamin D deficiency, arthritis, Overactive Bladder, hearing loss and other problems presents with history of ambulatory dysfunction, falls, dizziness since few weeks duration. Patient states he has been having balance issues especially since last 2 weeks and admits to sustaining a fall 2 months ago and also again fell 2 days ago. He denies any history of LOC, head trauma but had lacerated his right forearm secondary to fall 2 days ago. He describes the dizziness "Like being drunk" but denies any alcohol use. Also states having episodes when he has been waking up in the middle of night and having hallucinations, gets disoriented and reports inability to move/ambulate for brief periods (10 minutes or less) and has been having balance issues with ambulation. "I do not know how to explain the events ". He also states that he quit taking his glyburide since May 2017 and has been having Urinary problems. He checks his blood sugar regularly which are usually well controlled as per patient. Denies any history of chest pain, SOB, pedal edema, cough, fever, chills, fall, head trauma, LOC, headache, weakness, numbness, tingling, double/blurry vision, vertigo, slurred speech, facial deformity, nausea, vomiting, memory issues, abdominal pain, diarrhea, dysuria. Physical Exam (per Admitting): General Appearance: WD/WN, no apparent distress Head: normocephalic, atraumatic Eyes: normal inspection, PERRL, EOMI, sclerae normal ENT: normal ENT inspection, + pertinent finding (Hearing loss) Neck: supple, trachea midline Respiratory/Chest: chest non-tender, lungs clear, normal breath sounds, no respiratory distress, no accessory muscle use Cardiovascular: regular rate, rhythm, no edema, no murmur Abdomen/GI: normal bowel sounds, non tender, soft Back: normal inspection Extremities/Musculoskelatal: normal inspection, no pedal edema, + pertinent finding (LUE + AV fistula, Right forearm laceration ) Neurologic/Psych: irrigator head II-XII nml as tested, no motor/sensory deficits, alert , normal mood/affect, oriented x 3, + pertinent finding (+Rhomberg's Sign) Skin: normal color, warm/dry Hospital Course No complaint of dizzy spells or lightheadedness Denies of any shortness of breath or dyspnea on exertion No fever or chills Very eager to be discharged home today PHYSICAL EXAM General: Elderly male no apparent distress, comfortable HEENT: Sclera nonicteric pupils bilateral equal reactive light extraocular muscles intact Neck: Supple, no JVD, no carotid bruit, trachea midline, no thyromegaly Heart: Regular S1 and S2 Lungs clear to auscultate no wheeze or Abdomen: Soft nontender no organomegaly, active bowel sounds Extremity: No lower extremity edema, no rash or deformity Neuro: No focal neurological deficit, electrocoagulated history Last 8 Hrs Date Time Temp Pulse Resp B/P (MAP) Pulse Ox O2 Delivery O2 Flow Rate FiO2 12/26/17 11:38 36.4 57 18 93 Room Air 12/26/17 08:00 93 Room Air 12/26/17 07:29 36.4 57 18 131/61 (84) 93 ASSESSMENT AND PLAN DIZZY SPELL/LEFT VERTEBRAL ARTERY STENOSIS Symptom has markedly improved No evidence of acute CVA in detail neuro imaging CT head: No acute intracranial findings MRI Brain:no hemorrhage, mass effect, or evidence of acute ischemia. loss of the left vertebral artery flow void in the upper neck. This may be related to slow flow or vessel occlusion. Carotid USD: No evidence for a hemodynamically significant stenosis. Neck MRA: Absence of flow related enhancement in the left vertebral artery raises concern for occlusion, severe stenosis, or extremely slow flow. Head MRA: Findings suggest slow flow versus severe stenosis of the intradural portion of the left vertebral artery. Appreciate neurology evaluation Recommends continue dual antiplatelets aspirin and Plavix for at least 3 months Then discontinue aspirin Continue Plavix 75 mg daily lifelong if no bleeding complication occurs Added low-dose statin Fasting lipid panel in 3-4 months, goal LDL less than 70 Appreciate PT OT evaluation Ileana's shows no reproducible dizziness spell on turning of head or change of position AMBULATORY DYSFUNCTION 2/2 diabetic Neuropathy Thyroid function test: near normal Vitamin B12 normal Hg A1C:6.4 PT/OT evaluation appreciated Patient ambulated in hallway without any sign of loss of balance, stable to return home UTI Does not have any urinary symptoms Urine culture: Staph -coag negative more than 100,000 colony/mL Was on Rocephin Antibiotic changed to p.o. Keflex CKD stage IV Cr levels (3.5 to 3.8 at baseline as per patient's son) Follows with [facility] in [place] Never been on dialysis per patient but had fistula created Patient's family must established with [facility] spring former machine Appointment scheduled with Dr. Yayo Renteria at [facility] H/O Prostate cancer Stable continue Finasteride, Tamsulosin Follows with [facility] HYPERTENSION BP stable Continue felodipine Vitamin D deficiency Continue Vit D supplements Osteoarthritis on Chronic Pain med DVT Px: Heparin SQ Code Status: Full Code Disposition: Stable to be discharged home today Management assessment with home health visiting Patient will continue follow-up with [facility] at [place] Neurology follow-up with Raquel Wilder PA-C Nephrology follow-up with Dr.Roshan Renteria Total time spent on discharge = 40 mins This includes examination of the patient, discharge planning, medication reconciliation, and communication with other providers. Discharge Instructions Discharge Instructions Date of Service Dec 26, 2017. Admission Reason for Admission: Dizziness, Weakness Generalized Discharge Discharge Diagnosis / Problem: DIZZY SPELL /VERTEBRAL ARTERY STENOSIS /CKD STAGE 4 Discharge Goals Goal(s): Decrease discomfort, Improve function, Increase independence, Improve disease control, Diagnostic testing, Therapeutic intervention Activity Recommendations Activity Limitations: resume your previous activity . Instructions / Follow-Up Instructions / Follow-Up FOLLOW UP WITH PHYSICIAN AT [facility] FASTING LIPID PANEL IN 3-4 MONTHS ( GOAL LDL < 70 ) TAKE BOTH ASPIRIN 81 MG DAILY AND PLAVIX 75 MG DAILY FOR 3 MONTHS ( PLEASE TAKE THEM AFTER MEALS TO PREVENT GASTRITIS /BLEEDING IN STOMACH ) THEN TAKE ONLY PLAVIX 75 MG DAILY PLEASE STOP TAKING ASPIRIN /PLAVIX AND NOTIFY YOUR PHYSICIAN WITH ANY EVENT OF DARK STOOL OR BLOOD IN STOOL NEUROLOGY FOLLOW UP: 01/15/2018 @11:20 AM Raquel Wilder PA-C Neurology [facility] NEPHROLOGY FOLLOW UP :01/04/2018 @ 10:[address] Yayo Renteria MD Nephrology, [facility] ADDRESS: [address] [place] [id number] Risk Factors for Stroke: You can reduce your chances of stroke by working with your medical provider to adopt a healthy lifestyle. Some specific ways to lower your chance of stroke are: * If you are a smoker, now is the time to stop smoking cigarettes * If you are diabetic, improve the control of your blood sugars * Avoid excessive amounts of alcohol * Control high blood pressure * Lose weight if you are overweight * Be sure to lead an active lifestyle * Eat a healthy diet low in salt, cholesterol and fat You should know about other risk factors for stroke that you are unable to control. These include: * Age 55 years or older * Male gender * Certain racial groups: , or / * Family History of Stroke, Mini stroke or Heart Attack * Sickle Cell Disease Follow Up: It is important for you to keep your follow up appointments with your medical provider. Current Hospital Diet Patient's current hospital diet: Diabetes Type 2 Diet Discharge Diet Recommended Diet: AHA Diet (Heart Healthy), Diabetes Type 2 Diet Pending Studies Studies pending at discharge: no Laboratory Results Hemoglobin A1c Test 12/23/17 13:10 Range/Units Estimated Average Glucose 137 mg/dl Hemoglobin A1c 6.4 H 4.5-5.6 % Medical Emergencies . Who to Call and When: Medical Emergencies: Call 911 immediately if you experience any of the following warning signs and symptoms of Stroke: * Sudden numbness or weakness of the face, arm or leg, especially on one side of the body * Sudden confusion, trouble speaking or understanding * Sudden trouble seeing in one or both eyes * Sudden trouble walking, dizziness, loss of balance or coordination * Sudden severe headache with no cause Do not delay calling 911 if you experience any warning signs or symptoms of a stroke. Delay in seeking medical attention may affect what treatments can be given to you. . Non-Emergent Contact Non-Emergency issues call your: Primary Care Provider . . "Provider Documentation" section prepared by Gaby Page. . Stroke Core Measures Reason no t-PA for Stroke: Treatment not indicated Reason no antithrom by day 2: Treatment provided - N/A Reason no antithrom at D/C: Treatment provided - N/A Reason no statin at D/C: Treatment provided - N/A Reason no anticoag w/a fib: Treatment not indicated Additional Copies To Raquel Wilder PA-C
[2017-12-26] MEDS ORDERED: CEPHALEXIN MONOHYDRATE 250 MG CAP PO SCH (21:00)
== END 2017-12-26 13:44 | disposition home health service (06) | DRG 68 ==
LOC: C.EDB 12:20 → C.2E 16:41 → ENRESERV 16:50 → OBSVTOIN 12-24 07:43 → ENRESERV 12-25 14:38 → C.4E 12-25 15:45
PROVIDERS: ADMIT Internal Medicine; ATTEND Hospitalist
DX: I65.02 Occlusion and stenosis of left vertebral artery (principal); N18.4 Chronic kidney disease, stage 4 (severe); Z79.82 Long term (current) use of aspirin; N32.81 Overactive bladder; W19.XXXA Unspecified fall, initial encounter; Z85.46 Personal history of malignant neoplasm of prostate; I12.9 Hypertensive chronic kidney disease with stage 1 through stage 4 chronic kidney disease, or unspecified chronic kidney disease; E55.9 Vitamin D deficiency, unspecified; M19.90 Unspecified osteoarthritis, unspecified site; H91.90 Unspecified hearing loss, unspecified ear; R26.81 Unsteadiness on feet; Z82.49 Family history of ischemic heart disease and other diseases of the circulatory system; I95.1 Orthostatic hypotension; R42 Dizziness and giddiness; G62.9 Polyneuropathy, unspecified